=== PATIENT | male | born 1940 | race Caucasian/White ===

== ENCOUNTER 2019-08-05 10:30 | Outpatient (CLI) | payer MEDICARE, OTHER ==
[2019-08-05] VITALS (9 sets, daily range): BP systolic 130–160; BP diastolic 60–76
[~2019-08-05] VITALS: Ht 177.8 cm; Wt 86.0 kg
[2019-08-05] MEDS ORDERED: aminophylline 250mg/10ml inj. IV PRN (11:35)
[2019-08-05] MEDS ORDERED: normal saline 500ml IV soln 500 ML IV ONE (11:35)
[2019-08-05] MEDS ORDERED: regadenoson 0.4mg/5ml syringe IV ONE (11:35)
[2019-08-05] MEDS ORDERED: nitroGLYCERIN 0.4mg SUBLingual tab SL PRN (11:35)
== END 2019-08-05 23:59 | disposition home or self-care (01) ==
LOC: RAD 10:30
PROVIDERS: ATTEND Internal Medicine Cardiovascular Disease
DX: Z01.818 Encounter for other preprocedural examination (principal); I35.1 Nonrheumatic aortic (valve) insufficiency; R94.31 Abnormal electrocardiogram [ECG] [EKG]
CPT/HCPCS: 78452; 93017; 93306; A9500; J0280; J2785; J7040

== ENCOUNTER 2019-10-11 05:53 | Day surgery (SDC) | payer MEDICARE, OTHER ==
[2019-10-08 10:37] LABS: BASOPHILS # (AUTO) 0.1 X10'3 (0-0.2); BASOPHILS % (AUTO) 1.1 % (0-1); EOSINOPHILS # (AUTO) 0.3 X10'3 (0-0.9); EOSINOPHILS % (AUTO) 5.7 % (0-6); HEMATOCRIT 41.3 % (42.0-52.0); HEMOGLOBIN 13.9 g/dl (14.0-17.9); LYMPHOCYTES # (AUTO) 1.6 X10'3 (1.1-4.8); LYMPHOCYTES % (AUTO) 26.8 % (21-51); MEAN CORPUSCULAR HEMOGLOBIN 30.4 PG (27.0-31.0); MEAN CORPUSCULAR HGB CONC 33.7 g/dL (33.0-36.5); MEAN CORPUSCULAR VOLUME 90.1 FL (78-98); MEAN PLATELET VOLUME 7.4 FL (7.4-10.4); MONOCYTES # (AUTO) 0.4 X10'3 (0-0.9); MONOCYTES % (AUTO) 7.4 % (2-12); NEUTROPHILS # (AUTO) 3.4 X10'3 (1.8-7.7); PLATELET COUNT 244 X10'3 (140-440); RED BLOOD COUNT 4.58 X10'6 (4.70-6.10); RED CELL DISTRIBUTION WIDTH 14.2 % (11.5-14.5); WHITE BLOOD COUNT 5.8 X10'3 (4.5-11.0)
[2019-10-08 10:45] LABS: ALBUMIN 3.5 G/DL (3.4-5.0); ANION GAP 6 (8-16); BLOOD UREA NITROGEN 28 MG/DL (7-18); BUN/CREATININE RATIO 20.6 (5.4-32.0); CALCIUM 9.3 MG/DL (8.5-10.1); CHLORIDE 107 MMOL/L (99-107); CREATININE 1.36 MG/DL (0.60-1.10); GLUCOSE 104 MG/DL (70-104); POTASSIUM 4.7 MMOL/L (3.5-5.1); SODIUM 143 MMOL/L (135-145); TOTAL CARBON DIOXIDE 30.4 MMOL/L (24-32); eGFR 51 ML/MIN
[2019-10-08 10:49] LABS: PARTIAL THROMBOPLASTIN TIME 26 SECONDS (22-32)
[2019-10-11] VITALS (13 sets, daily range): BP systolic 49–168; BP diastolic 26–89
[~2019-10-11] VITALS: Ht 177.8 cm; Wt 81.8 kg
[~2019-10-11 05:53] MED LIST: ASPI-1265 PO; BIOT5TAB PO; CHOL200052 PO; CYAN100097 PO; DOCU-148 PO; FISH12002 PO; HYDR-4384 PO; LAMO100T40 PO; LOVA20TA2 PO; MULT-1172 PO; POLY17PO10 PO; SAW/1TAB2 PO
[2019-10-11] MEDS ORDERED: normal saline 1,000 ML IV SCH (06:15)
[2019-10-11] MEDS ORDERED: LORazepam 0.5 MG tablet PO PRN (06:15)
[2019-10-11] MEDS ORDERED: sodium bicarbonate (8.4%) inj. 75 ML in dextrose 5% water 500ml 500 ML IV SCH ×2 (06:15→07:43)
[2019-10-11] MEDS ORDERED: diphenhydrAMINE 25mg capsule PO PRN (06:15)
[2019-10-11] MEDS ORDERED: acetylcysteine 200 MG/ml 4ml vial PO PRN (06:20)
[2019-10-11] MEDS ORDERED: LIDOcaine/PRILOcaine 5gm cream TP ONE (06:55)
[2019-10-11] MEDS ORDERED: LIDOcaine 1% (10mg/ml)w/preservative injection 20ml MDV ONE (07:39)
[2019-10-11] MEDS ORDERED: fentaNYL/PF 50MCG/1 ML 2ML syringe ONE (07:39)
[2019-10-11] MEDS ORDERED: verapamil 2.5 mg/ml inj IV ONE (07:39)
[2019-10-11] MEDS ORDERED: heparin 1,000unit/ml 10ml vial 10 ML ONE ×2 (07:39→09:54)
[2019-10-11] MEDS ORDERED: nitroGLYCERIN-Tridil 50MG/D5W 250 ML IV ONE (07:39)
[2019-10-11] MEDS ORDERED: midazolam 2 mg/2 ml injection ONE (07:39)
[2019-10-11] MEDS ORDERED: iohexol 350 MG/ML 50ML vial IV ONE (07:40)
[2019-10-11] MEDS ORDERED: iohexol 350MG/ML 100ml bottle IV ONE ×3 (07:40→09:37)
[2019-10-11] MEDS ORDERED: heparin 1,000 UNITS/NS 500ml 500 ML ONE (08:44)
[2019-10-11] MEDS ORDERED: heparin 25,000 UNIT/250ml bag 250 ML IV ONE (08:51)
[2019-10-11] MEDS ORDERED: clopidogrel 300mg tablet ONE (09:57)
--- NOTE | 2019-10-11 10:45 | NUR ---
pt back in room from greenhouse laborer. vs stable as charted. pt received Plavix from greenhouse laborer RNDave. Site stable with vascular band on, no s/s of bleeding. fluids running as ordered. Will continue to monitor.
--- NOTE | 2019-10-11 10:46 | NUR ---
pt sitting up in bed, eating breakfast tray. Denies cp, denies pain at site. pt's family at bedside. will continue to monitor
[2019-10-11] MEDS ORDERED: OXAZEpam 15mg capsule PO PRN (10:55)
[2019-10-11] MEDS ORDERED: acetaminophen 325mg tablet PO PRN (10:55)
[2019-10-11] MEDS ORDERED: HYDROcodone/acetaminophen 10/325mg tab PO PRN ×2 (10:55)
[2019-10-11] MEDS ORDERED: magnesium hydroxide 30ml (MOM) UD suspension PO PRN (10:55)
[2019-10-11] MEDS ORDERED: cyclobenzaprine 10mg tablet PO PRN (10:55)
--- NOTE | 2019-10-11 10:55 | NUR ---
pt ate 100% of breakfast tray.
[2019-10-11] MEDS ORDERED: heparin 25,000 UNIT/250ml bag 250 ML IV SCH (12:30)
[2019-10-11] MEDS ORDERED: ondansetron/PF 4mg/2ml inj IV PRN (14:25)
[2019-10-11] MEDS ORDERED: docusate sod 100mg capsule PO SCH (20:00)
[2019-10-11] MEDS ORDERED: acetylcysteine oral sol. 200 MG/ML 4ml vial PO SCH (20:00)
[2019-10-12] MEDS ORDERED: clopidogrel 75mg tablet PO SCH (08:00)
== END 2019-10-11 16:55 | disposition home or self-care (01) ==
LOC: SSTAY O 05:53
PROVIDERS: ATTEND Internal Medicine Cardiovascular Disease
DX: R94.39 Abnormal result of other cardiovascular function study (principal); E78.5 Hyperlipidemia, unspecified; I10 Essential (primary) hypertension; G43.909 Migraine, unspecified, not intractable, without status migrainosus; G40.909 Epilepsy, unspecified, not intractable, without status epilepticus; Z86.73 Personal history of transient ischemic attack (TIA), and cerebral infarction without residual deficits; Z79.899 Other long term (current) drug therapy; Z98.890 Other specified postprocedural states; Z98.1 Arthrodesis status; Z98.41 Cataract extraction status, right eye; Z98.42 Cataract extraction status, left eye; Z87.891 Personal history of nicotine dependence; Z79.01 Long term (current) use of anticoagulants
CPT/HCPCS: 36415; 80048; 85025; 85347; 85610; 85730; 93005; 93458; 99152; 99153; C1725; C1769; C1874; C1894; C9600; J1644; J2001; J2250; J2405; J3010; J7030; Q0163; Q9967; A4620; A5120; J3490

== ENCOUNTER 2020-05-02 11:11 | Day surgery (SDC) | payer MEDICARE, OTHER ==
[2020-04-27 13:43] LABS: BASOPHILS % (AUTO) 0.4 % (0-1); EOSINOPHILS # (AUTO) 0.1 X10'3 (0-0.9); EOSINOPHILS % (AUTO) 2.5 % (0-6); LYMPHOCYTES # (AUTO) 1.4 X10'3 (1.1-4.8); LYMPHOCYTES % (AUTO) 28.2 % (21-51); MEAN CORPUSCULAR HEMOGLOBIN 31.9 PG (27.0-31.0); MEAN CORPUSCULAR HGB CONC 33.4 g/dL (33.0-36.5); MEAN CORPUSCULAR VOLUME 95.7 FL (78-98); MEAN PLATELET VOLUME 7.9 FL (7.4-10.4); MONOCYTES # (AUTO) 0.3 X10'3 (0-0.9); MONOCYTES % (AUTO) 6.6 % (2-12); NEUTROPHILS % (AUTO) 62.3 % (42-75); PRE OP PLATELET COUNT 150 X10'3 (140-440); RED CELL DISTRIBUTION WIDTH 13.8 % (11.5-14.5)
[2020-04-27 13:58] LABS: PRE OP PROTIME 10.7 SECONDS (9.0-12.0)
[2020-04-27 14:10] LABS: ALBUMIN 3.9 G/DL (3.4-5.0); ALBUMIN/GLOBULIN RATIO 1.3 (1.1-1.5); ALKALINE PHOSPHATASE 69 IU/L (46-116); BLOOD UREA NITROGEN 24 MG/DL (7-18); BUN/CREATININE RATIO 16.7 (5.4-32.0); CALCIUM 9.1 MG/DL (8.5-10.1); CHLORIDE 108 MMOL/L (99-107); CREATININE 1.44 MG/DL (0.60-1.10); PRE OP ALT 32 U/L (30-65); PRE OP ANION GAP 3 (8-16); PRE OP AST 20 U/L (10-37); PRE OP BILIRUB, TOTAL 0.6 MG/DL (0.0-1.0); PRE OP GLUCOSE 98 MG/DL (70-104); PRE OP POTASSIUM 4.9 MMOL/L (3.4-5.1); PRE OP SODIUM 142 MMOL/L (135-145); TOTAL CARBON DIOXIDE 30.7 MMOL/L (24-32); TOTAL PROTEIN 6.8 G/DL (6.4-8.2); eGFR 47 ML/MIN
[2020-05-02] VITALS (12 sets, daily range): BP systolic 141–163; BP diastolic 72–85
[~2020-05-02] VITALS: Ht 177.8 cm; Wt 87.0 kg
[~2020-05-02 11:11] MED LIST changes: +ATOR-2 PO; -BIOT5TAB PO; +BUPIVACAINE liposomal/PF 13.3 MG/ML vial IM ONE; +BUPIVAcaine/PF 2.5 mg/ml (0.25%) 30ml vial ONE; +BUPIVAcaine/PF 2.5mg/ml (0.25%) 10ml vial ONE; +CLOP75TA35 PO; -CYAN100097 PO; -DOCU-148 PO; -HYDR-4384 PO; +LIDOcaine 1% 30ml preserv. free vial ONE; -LOVA20TA2 PO; +MULT-1141 PO; -MULT-1172 PO; -POLY17PO10 PO; -SAW/1TAB2 PO; +cefazolin/dext.iso 2gm/50ml 50 ML IV ONE; +famotidine 20mg tablet PO ONE; +meperidine/PF 25mg/ml syringe IV PRN; +morphine 2 MG/ML inj. syringe IV PRN; +morphine 4 MG/ML inj SYRINge IV PRN; +ondansetron/PF 4mg/2ml inj IV PRN; +proCHLORperazine 10 MG/2 ml inj IV PRN; +ringers solution, lacted 1,000 ML IV SCH
[2020-05-02] MEDS ORDERED: desflurane 240ml liquid inh. IH ONE (12:27)
[2020-05-02] MEDS ORDERED: dexamethasone sod phosphate 10mg/ml inj ONE (12:27)
[2020-05-02] MEDS ORDERED: fentaNYL/PF 50MCG/1 ML 2ML syringe ONE (12:34)
[2020-05-02] MEDS ORDERED: midazolam 2 mg/2 ml injection ONE (12:34)
[2020-05-02] MEDS ORDERED: propofol inj 20 ML IV ONE (12:46)
[2020-05-02] MEDS ORDERED: ondansetron/PF 4mg/2ml inj ONE (12:46)
[2020-05-02] MEDS ORDERED: rocuronium 10mg/ml inj IV ONE (12:46)
[2020-05-02] MEDS ORDERED: acetaminophen 1,000mg/100ml IV 100 ML IV ONE (12:55)
--- NOTE | 2020-05-02 14:04 | NUR ---
Received from OR via [facility], accompanied by Anesthesiologist DR COHEN and report given by Anesthesiologist. PT DROWSY, DENIES PAIN, ABDOMEN W/ABD BINDER IN PLACE, 3 LAP SITES W/BANDAIDS CDI. Addendum: 05/02/20 at 1444 by Anni Avila RN Amended: Links added.
[2020-05-02] MEDS ORDERED: oxyCODONE/APAP 5-325mg tablet PO PRN (14:10)
[2020-05-02] MEDS: meperidine/PF 25mg/ml syringe IV PRN ×2 (14:53→15:02)
--- NOTE | 2020-05-02 16:04 | NUR ---
D/C INSTRUCTIONS GIVEN AND GONE OVER W/PT AND PTS WHOM VERBALIZED UNDERSTANDING, PT D/CD TO HOME VIA W/C TO PRIVATE VEHICLE W/O INCIDENT. Addendum: 05/02/20 at 1627 by Anni Avila RN Amended: Links added.
== END 2020-05-02 16:04 | disposition home or self-care (01) ==
LOC: PAS 11:11
PROVIDERS: ATTEND Surgery
DX: K43.2 Incisional hernia without obstruction or gangrene (principal); G40.909 Epilepsy, unspecified, not intractable, without status epilepticus; E78.00 Pure hypercholesterolemia, unspecified; I25.10 Atherosclerotic heart disease of native coronary artery without angina pectoris; I48.91 Unspecified atrial fibrillation; Z98.890 Other specified postprocedural states; Z98.41 Cataract extraction status, right eye; Z98.42 Cataract extraction status, left eye; Z20.828 Contact with and (suspected) exposure to other viral communicable diseases; Z95.5 Presence of coronary angioplasty implant and graft; Z79.82 Long term (current) use of aspirin; Z79.899 Other long term (current) drug therapy; Z79.01 Long term (current) use of anticoagulants; Z91.09 Other allergy status, other than to drugs and biological substances; Z87.891 Personal history of nicotine dependence; Z98.52 Vasectomy status; Z90.5 Acquired absence of kidney; Z85.51 Personal history of malignant neoplasm of bladder; Z85.828 Personal history of other malignant neoplasm of skin; Z82.49 Family history of ischemic heart disease and other diseases of the circulatory system; Z86.73 Personal history of transient ischemic attack (TIA), and cerebral infarction without residual deficits
CPT/HCPCS: 36415; 49654; 64488; 80053; 82948; 85025; 85610; 85730; 87635; C1758; C1781; C9290; J0131; J1100; J2001; J2175; J2250; J2405; J2704; J3010; J3490; A4215; A4618; J7120

== ENCOUNTER 2020-12-05 11:09 | Day surgery (SDC) | payer MEDICARE, OTHER ==
[2020-11-28 16:12] LABS: BASOPHILS # (AUTO) 0.1 X10'3 (0-0.2); BASOPHILS % (AUTO) 0.9 % (0-1); EOSINOPHILS # (AUTO) 0.3 X10'3 (0-0.9); LYMPHOCYTES # (AUTO) 1.6 X10'3 (1.1-4.8); LYMPHOCYTES % (AUTO) 20.5 % (21-51); MEAN CORPUSCULAR HGB CONC 32.8 g/dL (33.0-36.5); MEAN CORPUSCULAR VOLUME 94.3 FL (78-98); MEAN PLATELET VOLUME 7.8 FL (7.4-10.4); MONOCYTES # (AUTO) 0.5 X10'3 (0-0.9); MONOCYTES % (AUTO) 6.8 % (2-12); NEUTROPHILS # (AUTO) 5.2 X10'3 (1.8-7.7); NEUTROPHILS % (AUTO) 67.8 % (42-75); PRE OP HEMATOCRIT 41.1 % (42.0-52.0); PRE OP HEMOGLOBIN 13.5 g/dL (14.0-17.9); PRE OP PLATELET COUNT 133 X10'3 (140-440); RED BLOOD COUNT 4.36 X10'6 (4.70-6.10); RED CELL DISTRIBUTION WIDTH 14.5 % (11.5-14.5)
[2020-11-28 16:20] LABS: PRE OP INR 1.1 INR; PRE OP PROTIME 11.5 SECONDS (9.0-12.0)
[2020-11-28 16:21] LABS: ALBUMIN 3.4 G/DL (3.4-5.0); ALBUMIN/GLOBULIN RATIO 1.2 (1.1-1.5); ALKALINE PHOSPHATASE 78 IU/L (46-116); BLOOD UREA NITROGEN 27 MG/DL (7-18); BUN/CREATININE RATIO 20.8 (5.4-32.0); CALCIUM 8.8 MG/DL (8.5-10.1); CHLORIDE 108 MMOL/L (99-107); PRE OP ALT 32 U/L (30-65); PRE OP ANION GAP 8 (8-16); PRE OP AST 13 U/L (10-37); PRE OP BILIRUB, TOTAL 0.6 MG/DL (0.0-1.0); PRE OP GLUCOSE 95 MG/DL (70-104); PRE OP POTASSIUM 4.2 MMOL/L (3.4-5.1); PRE OP SODIUM 143 MMOL/L (135-145); TOTAL PROTEIN 6.3 G/DL (6.4-8.2); eGFR 53 ML/MIN
[2020-12-05] VITALS (11 sets, daily range): BP systolic 126–151; BP diastolic 57–80
[~2020-12-05] VITALS: Ht 177.8 cm; Wt 85.3 kg
[~2020-12-05 11:09] MED LIST changes: +APIX5TAB3 PO; -BUPIVACAINE liposomal/PF 13.3 MG/ML vial IM ONE; -BUPIVAcaine/PF 2.5mg/ml (0.25%) 10ml vial ONE; +CARV6.252 PO; +CLOP75TA34 PO; -CLOP75TA35 PO; -FISH12002 PO; +FLO0.4C PO; +OMEG1CAP13 PO; +cefazolin/dext.iso 2gm/100ml 100 ML IV ONE; -cefazolin/dext.iso 2gm/50ml 50 ML IV ONE; -meperidine/PF 25mg/ml syringe IV PRN; -morphine 2 MG/ML inj. syringe IV PRN; -morphine 4 MG/ML inj SYRINge IV PRN; -ondansetron/PF 4mg/2ml inj IV PRN; -proCHLORperazine 10 MG/2 ml inj IV PRN
[2020-12-05] MEDS ORDERED: BUPIVAcaine/PF 2.5mg/ml (0.25%) 10ml vial ONE (12:37)
[2020-12-05] MEDS ORDERED: BUPIVACAINE liposomal/PF 13.3 MG/ML vial IM ONE (12:38)
[2020-12-05] MEDS ORDERED: sevoflurane 250ml liquid IH ONE (12:44)
[2020-12-05] MEDS ORDERED: fentaNYL/PF 50MCG/1 ML 2ML syringe ONE (12:49)
[2020-12-05] MEDS ORDERED: midazolam 1 mg/ML 2ml injection ONE (12:49)
[2020-12-05] MEDS ORDERED: propofol inj 20 ML IV ONE (12:51)
[2020-12-05] MEDS ORDERED: rocuronium 10mg/ml inj IV ONE (12:51)
[2020-12-05] MEDS ORDERED: morphine 2 MG/ML inj. syringe IV PRN (13:40)
[2020-12-05] MEDS ORDERED: morphine 4 MG/ML inj SYRINge IV PRN (13:40)
[2020-12-05] MEDS ORDERED: meperidine/PF 25mg/ml syringe IV PRN ×3 (13:40)
[2020-12-05] MEDS ORDERED: proCHLORperazine 10 MG/2 ml inj IV PRN (13:40)
[2020-12-05] MEDS ORDERED: ringers solution, lacted 1,000 ML IV SCH (13:40)
[2020-12-05] MEDS ORDERED: ondansetron/PF 4mg/2ml inj IV PRN (13:40)
[2020-12-05] MEDS ORDERED: dexamethasone sod phosphate 4mg/ml inj. ONE (14:03)
[2020-12-05] MEDS ORDERED: ondansetron/PF 4mg/2ml inj ONE (14:03)
[2020-12-05] MEDS ORDERED: neostigmine methylsulfate 1 MG/ML 10ml vial ONE (14:05)
[2020-12-05] MEDS ORDERED: glycopyrrolate 0.2mg/ml inj ONE (14:05)
--- NOTE | 2020-12-05 14:30 | NUR ---
ADMITTED TO PACU FROM OR ACCOMPANIED BY ANESTHESIA. INTIAL PHYSICAL ASSESSMENT DONE AND RECORDED. REPORT RECEIVED FROM ANESTHESIA.
[2020-12-05] MEDS ORDERED: oxyCODONE/APAP 5-325mg tablet PO PRN (14:40)
[2020-12-05] MEDS ORDERED: oxyCODONE/APAP 10/325mg tablet PO PRN (14:40)
--- NOTE | 2020-12-05 16:30 | NUR ---
DISCHARGE CRITERIA MET, DISCHARGE INSTRUCTIONS GIVEN, DEMONSTRATES VERBAL UNDERSTANDING. DISCHARGED HOME IN GOOD CONDITION.
== END 2020-12-05 16:00 | disposition home or self-care (01) ==
LOC: PAS 11:09
PROVIDERS: ATTEND Surgery
DX: K43.2 Incisional hernia without obstruction or gangrene (principal); E78.00 Pure hypercholesterolemia, unspecified; G89.29 Other chronic pain; G43.909 Migraine, unspecified, not intractable, without status migrainosus; N40.0 Benign prostatic hyperplasia without lower urinary tract symptoms; M19.90 Unspecified osteoarthritis, unspecified site; I25.10 Atherosclerotic heart disease of native coronary artery without angina pectoris; I10 Essential (primary) hypertension; Z85.54 Personal history of malignant neoplasm of ureter; Z95.5 Presence of coronary angioplasty implant and graft; Z98.49 Cataract extraction status, unspecified eye; Z98.890 Other specified postprocedural states; Z98.52 Vasectomy status; Z90.5 Acquired absence of kidney; Z87.891 Personal history of nicotine dependence; Z91.09 Other allergy status, other than to drugs and biological substances; Z79.899 Other long term (current) drug therapy; Z79.01 Long term (current) use of anticoagulants; Z79.82 Long term (current) use of aspirin
CPT/HCPCS: 36415; 49656; 64488; 80053; 82948; 85025; 85610; 85730; C1758; C1781; C9290; J1100; J2001; J2175; J2250; J2405; J2704; J2710; J3010; J3490; A4215; A4618; J7120

== ENCOUNTER → 2021-11-02 | Day surgery (SDC) | payer MEDICARE, OTHER ==
[2021-10-30 13:11] LABS: BASOPHILS % (AUTO) 0.6 % (0-1); EOSINOPHILS # (AUTO) 0.2 X10'3 (0-0.9); EOSINOPHILS % (AUTO) 4.7 % (0-6); LYMPHOCYTES # (AUTO) 1.4 X10'3 (1.1-4.8); LYMPHOCYTES % (AUTO) 32.1 % (21-51); MEAN CORPUSCULAR HEMOGLOBIN 32.3 PG (27.0-31.0); MEAN CORPUSCULAR VOLUME 97.7 FL (78-98); MEAN PLATELET VOLUME 7.9 FL (7.4-10.4); MONOCYTES # (AUTO) 0.3 X10'3 (0-0.9); MONOCYTES % (AUTO) 7.2 % (2-12); NEUTROPHILS # (AUTO) 2.5 X10'3 (1.8-7.7); NEUTROPHILS % (AUTO) 55.4 % (42-75); PRE OP HEMOGLOBIN 14.5 g/dL (14.0-17.9); PRE OP PLATELET COUNT 136 X10'3 (140-440); RED CELL DISTRIBUTION WIDTH 13.4 % (11.5-14.5)
[2021-10-30 13:23] LABS: PRE OP INR 1.1 INR; PRE OP PROTIME 11.4 SECONDS (9.0-12.0)
[2021-10-30 13:27] LABS: ALBUMIN 3.8 G/DL (3.4-5.0); ALBUMIN/GLOBULIN RATIO 1.4 (1.1-1.5); ALKALINE PHOSPHATASE 69 IU/L (46-116); BLOOD UREA NITROGEN 24 MG/DL (7-18); BUN/CREATININE RATIO 21.6 (5.4-32.0); CALCIUM 8.8 MG/DL (8.5-10.1); CHLORIDE 108 MMOL/L (99-107); CREATININE 1.11 MG/DL (0.60-1.10); PRE OP ALT 32 U/L (30-65); PRE OP ANION GAP 8 (8-16); PRE OP AST 19 U/L (10-37); PRE OP BILIRUB, TOTAL 0.7 MG/DL (0.0-1.0); PRE OP GLUCOSE 101 MG/DL (70-104); PRE OP POTASSIUM 4.7 MMOL/L (3.4-5.1); PRE OP SODIUM 144 MMOL/L (135-145); TOTAL CARBON DIOXIDE 27.9 MMOL/L (24-32); TOTAL PROTEIN 6.6 G/DL (6.4-8.2); eGFR 64 ML/MIN
[2021-11-02] VITALS (8 sets, daily range): BP systolic 119–153; BP diastolic 57–77
[~2021-11-02] VITALS: Ht 177.8 cm; Wt 81.6 kg
[~2021-11-02] MED LIST changes: +APIX2.5T PO; -APIX5TAB3 PO; -ASPI-1265 PO; +BUPIVAcaine 0.5% inj/PF 30 ML ONE; -BUPIVAcaine/PF 2.5 mg/ml (0.25%) 30ml vial ONE; +CARV3.122 PO; -CARV6.252 PO; +CHOL200012 PO; -CHOL200052 PO; +DOCUMENT DATE & TIME OF BETA-BLOCKER PO ONE; +FENTANYL CITRATE/PF 50 MCG/1 ML VIAL ONE; +LIDOcaine 0.5% (5mg/ml) 50ml vial ONE; +MIDAZolam 1 MG/ML 5ML VIAL ONE; +OMEG-79 PO; -OMEG1CAP13 PO; +TYL650S PO; -cefazolin/dext.iso 2gm/100ml 100 ML IV ONE; +cefazolin/dext.iso 2gm/50ml IV ONE; +ketorolac trometh. 30mg/ml inj. ONE
--- NOTE | 2021-11-02 07:59 | NUR ---
Received from OR via [facility] , accompanied by Anesthesiologist DR. ALYCE TOBIAS and report given by Anesthesiolgist. PATIENT ON ROOM AIR AT 98%. BLOOD PRESSURE NORMAL. 20 GAUGE IN LEFT WRIST. BRADYCARDIC. Addendum: 11/02/21 at 0817 by Giselle Mcgowan RN Amended: Links added.
--- NOTE | 2021-11-02 08:59 | NUR ---
PATIENT MEETS DISCHARGE CRITERIA. VSS. PIV DC'D NO COMPLICATIONS. PATIENTS HEARING AIDES IN BOTH EARS ON DISCHARGE. EDUCATED PT. ON ICE AND ELEVATION. ALSO EDUCATE AT THE CAR OF ICE AND ELEVATE. RECOMMENCED TO REREAD INSTRUCTIONS ONCE THEY ARE HOME. PATIENT AND VERBALIZED AN UNDERSTANDING OF DISCHARGE INSTRUCTIONS Addendum: 11/02/21 at 0910 by Giselle Mcgowan RN Amended: Links added.
== END | disposition home or self-care (01) ==
LOC: PAS 05:35
PROVIDERS: ATTEND Orthopaedic Surgery Hand Surgery
DX: G56.01 Carpal tunnel syndrome, right upper limb (principal); G56.21 Lesion of ulnar nerve, right upper limb; I25.10 Atherosclerotic heart disease of native coronary artery without angina pectoris; I12.9 Hypertensive chronic kidney disease with stage 1 through stage 4 chronic kidney disease, or unspecified chronic kidney disease; N18.9 Chronic kidney disease, unspecified; M19.90 Unspecified osteoarthritis, unspecified site; N40.0 Benign prostatic hyperplasia without lower urinary tract symptoms; Z20.822 Contact with and (suspected) exposure to COVID-19; Z79.899 Other long term (current) drug therapy; Z79.01 Long term (current) use of anticoagulants; Z79.82 Long term (current) use of aspirin; Z98.890 Other specified postprocedural states; Z98.52 Vasectomy status; Z90.5 Acquired absence of kidney; Z98.41 Cataract extraction status, right eye; Z98.42 Cataract extraction status, left eye; Z87.891 Personal history of nicotine dependence; Z91.09 Other allergy status, other than to drugs and biological substances
CPT/HCPCS: 36415; 64718; 64721; 71046; 80053; 82948; 85025; 85610; 85730; 93005; J1885; J2250; J3010; J3490; J7030; J7120; S0020; U0003; U0005; Z7506; Z7512; A4215; A6449

== ENCOUNTER 2025-03-02 10:33 | Day surgery (SDC) | payer MEDICARE, OTHER ==
[2025-03-01 11:12] LABS: MEAN PLATELET VOLUME 7.3 FL (7.4-10.4); RED CELL DISTRIBUTION WIDTH 13.9 % (11.5-14.5)
[2025-03-01 11:25] LABS: CREATININE 1.11 MG/DL (0.60-1.10); TOTAL CARBON DIOXIDE 25.1 MMOL/L (24-32); eGFR 63 ML/MIN
[2025-03-01 11:29] LABS: APTT 27 SECONDS (22-32); INR 1.1 INR
[~2025-03-02] VITALS: Ht 177.8 cm; Wt 84.2 kg
[2025-03-02] VITALS (9 sets, daily range): BP systolic 128–159; BP diastolic 51–71; PULSE 49–63; RESP 12–17; TEMP 98.1; O2SAT 97–99
[~2025-03-02 10:33] MED LIST changes: -BUPIVAcaine 0.5% inj/PF 30 ML ONE; -DOCUMENT DATE & TIME OF BETA-BLOCKER PO ONE; -FENTANYL CITRATE/PF 50 MCG/1 ML VIAL ONE; -FLO0.4C PO; -LIDOcaine 0.5% (5mg/ml) 50ml vial ONE; -LIDOcaine 1% 30ml preserv. free vial ONE; -MIDAZolam 1 MG/ML 5ML VIAL ONE; +TAMS-55 PO; -cefazolin/dext.iso 2gm/50ml IV ONE; -famotidine 20mg tablet PO ONE; -ketorolac trometh. 30mg/ml inj. ONE; -ringers solution, lacted 1,000 ML IV SCH
--- NOTE | 2025-03-02 10:59 | ELECTROCARDIOGRAPH REPORT ---
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 BC De Measurements Intervals [place] Rate: 50 P: -9 LA: 169 QRS: -52 QRSD: 129 T: -36 QT: 483 QTc: 441 Interpretive Statements Sinus bradycardia Atrial premature complexes in couplets Left bundle branch block Electronically Signed On 03-02-2025 17:26:[address] BC De Please click the below link to view image of tracing.
[2025-03-02] MEDS ORDERED: ISOS60TA71 PO (11:05)
[2025-03-02] MEDS ORDERED: ANAS1TAB10 PO (11:05)
[2025-03-02] MEDS ORDERED: ceFAZolin 2gm/dext,iso 50mL 50 ML IV ONE (12:10)
[2025-03-02] MEDS ORDERED: midazolam 1 mg/ML 2ml injection ONE ×2 (12:26→15:39)
[2025-03-02] MEDS ORDERED: LIDOcaine 1% W/epiNEPHrine 1:100,000 20ml vial ONE (12:26)
[2025-03-02] MEDS ORDERED: fentaNYL/PF 50MCG/1 ML 2ML syringe ONE ×2 (12:26→16:10)
[2025-03-02] MEDS ORDERED: hydrALAZINE 20mg/ml inj. ONE (16:10)
[2025-03-02] MEDS ORDERED: CEPH-585 PO (17:08)
[2025-03-02] MEDS ORDERED: HYDROcodone/acetaminophen 5mg/325mg tablet PO PRN (17:10)
[2025-03-02] MEDS ORDERED: HYDROcodone/acetaminophen 10/325mg tab PO PRN (17:10)
[2025-03-02] MEDS: vancomycin/NS 1 GM ADD-VANTAGE 250 ML X 1 DOSE IV ONE (17:35)
--- NOTE | 2025-03-02 19:05 | RADIOLOGY REPORT ---
DI CHEST,TWO VIEWS CLINICAL HISTORY: s/p pacemaker COMPARISON: CHEST,TWO VIEWS on DOS: 10/30/21 TECHNIQUE: Frontal and lateral view of the chest was obtained FINDINGS: Lines and Tubes: Left sided pacemaker. Lungs: No focal consolidation. Pleura: No effusion. No pneumothorax. Cardiomediastinal contours: Unremarkable Bones: No acute osseous abnormality. IMPRESSION: No acute cardiopulmonary disease.
--- NOTE | 2025-03-03 06:13 | CARDIOLOGY REPORT ---
DATE OF SERVICE: 03/02/2025 DICTATING PHYSICIAN: BC De MD PERMANENT PACEMAKER IMPLANTATION REPORT GENDER: Male. AGE: 85 years. INDICATION: The patient is an 85-year-old male with history of hypertension, hyperlipidemia, CAD, status post coronary artery stenting and with sick sinus syndrome. The patient's heart rate was 38 back in 05/2020. He was managed medically. In 01/2021, his lowest heart rate was in the 40s. The patient has been having lately increasing tightness, fatigue, and shortness of breath. He had another Zio monitor in 07/2024 with heart rate of 36, episodes of SVT. In view of his tachybrady episode, the patient has been short of breath, tired, fatigued with episodes of dizziness. After discussing risks, benefits and alternative options, he prefers to proceed with a permanent pacemaker implantation. Risks, benefits, and alternative options discussed and informed consent obtained. PREPROCEDURE DIAGNOSIS: Sick sinus syndrome with tachybrady episode. POSTPROCEDURE DIAGNOSIS: Sick sinus syndrome with tachybrady episode. PROCEDURES: * Fluoroscopy. * AV sequential pacemaker implantation. * Conscious sedation of 90 minutes. PRIMARY PHYSICIAN: Elmira Morgan MD AERIAL PLANTING AND CULTIVATION MANAGER: BC De MD BLOOD LOSS: Less than 5 mL. SEDATION: Local conscious sedation. COMPLICATIONS: None. IMPLANTER: BC De MD, [facility] DESCRIPTION OF PROCEDURE: Left infraclavicular area was prepped and draped in the usual fashion. Two separate accesses were obtained in the left subclavian vein using micropuncture technique. Two J-wires were put in the right atrium. A horizontal incision was placed in the left infraclavicular area. Using blunt dissection and electrocautery, subcutaneous pacemaker pocket was formed_. External ends of the J-wires were retrieved into the pacemaker pocket. Two 7-Malagasy sheaths were advanced over those J-wires. Through one of them, RV lead advanced to the RV apex, screwed into the RV apex. Appropriate pacing and sensing thresholds obtained, sheath was removed by peel-away technique. Lead anchored to the subcutaneous tissue with Ethibond. Through the second 7-Malagasy sheath, the right atrial lead advanced to the right atrium, J-wire was formed, screwed into the right atrial appendage. Appropriate pacing and sensing thresholds obtained. Sheath removed in peel-away technique and lead anchored to the subcutaneous tissue with Ethibond. Leads connected to appropriate sockets of the pulse generator. Set screws were tightened. Tug test performed and the pacemaker was suspended into the pacemaker pocket. The pocket was closed with continuous 0 Vicryl, followed by interrupted 0 Vicryl followed, third layer with interrupted 2-0 Vicryl. Skin approximated with hemal. Pressure dressing applied. The patient tolerated the procedure with no complications. Device used was Medtronic Margarita MRI compatible pacemaker, model #W3DR01, serial #[id number], Medtronic, 03/02/2025, left pectoral rotation. RIGHT ATRIAL LEAD: Model #650976, 52 cm long, serial #[id number], Medtronic, 03/02/2025, right atrial appendage, P-wave amplitude 1.4 millivolts, 418 ohms of impedance, pacing threshold of 0.75 at 0.4 milliseconds. RV LEAD: Model #5076, 58 cm long, serial #[id number], Medtronic, 03/02/2025, RV apex, R-wave amplitude of 4.5 and 760 ohms of impedance, pacing 0.75 volt at 0.4 milliseconds. IMPRESSION: An 85-year-old male with sick sinus syndrome, symptomatic tachybrady episode, underwent successful AV sequential pacemaker implantation with no complications. BC De MD TID: [id number] RECEIPT: [id number] ANNY/AIME/PALOMO cc: Elmira Morgan MD [facility]
== END 2025-03-02 20:15 | disposition home or self-care (01) ==
LOC: SSTAY O 10:33
PROVIDERS: ATTEND Internal Medicine Cardiovascular Disease
DX: I49.5 Sick sinus syndrome (principal); I49.1 Atrial premature depolarization; I44.7 Left bundle-branch block, unspecified; Z79.01 Long term (current) use of anticoagulants; Z79.899 Other long term (current) drug therapy
CPT/HCPCS: 33208; 36415; 71046; 80048; 85025; 85610; 85730; 93005; 99152; 99153; A4565; A6258; A6402; C1785; C1898; J0360; J0690; J1200; J2250; J3010; J3370; J3490; J7030; Z7610; A6449; J3373